=== PATIENT | female | born 1995 | race Two or more races ===

== ENCOUNTER 2019-02-15 17:49 | Emergency (ER) | payer OTHER ==
[~2019-02-15] VITALS: Ht 160 cm; Wt 67.1 kg
[2019-02-15 18:08] VITALS: BP 105/71
== END 2019-02-15 20:55 | disposition left against medical advice (07) ==
LOC: ER 17:49
DX: R42 Dizziness and giddiness (principal); Z53.21 Procedure and treatment not carried out due to patient leaving prior to being seen by health care provider